=== PATIENT | female | born 2005 | race Caucasian/White ===

== ENCOUNTER 2024-01-20 10:22 | Inpatient (IN) ==
[2024-01-20] MEDS ORDERED: OXYTOCIN 30 UNITS/NSS 30 UNITS/500 ML BAG IV PRN ×2 (10:50→14:57)
[2024-01-20] MEDS ORDERED: LIDOCAINE 1% LOCAL 20 ML VIAL INFIL PRN (10:50)
--- NOTE | 2024-01-20 10:52 | History & Physical Report ---
Date of Service January 20, 2024 Assessment & Plan (1) Normal labor: Plan admit, iv, labs. fhts categ 1. desires epidural. History of Present Illness Chief Complaint: painful contractions. Primary Care Provider: Keerthi Hidalgo DO 18yo at 40+wks wm presents to LD with painful contractions. No rom. Some bleeding, red. +FM. PNC c/b 1. pulmonary valve stenosis--> normal echo this 2. CT pos, treated, flavio and restest neg. PNL rh pos, ri, gbs neg OBH: g1 GYNH: +ct in preg, treated, flavio neg and retest 36wks neg Allergies Allergy/AdvReac Type Severity Reaction Status Date / Time No Known Allergies Allergy Verified 01/15/24 14:30 Home Medications Medication Instructions Recorded Confirmed Type 21-iron fu-folic acid PO 06/04/23 01/15/24 History [ Complete] Patient History Medical History (Updated 01/20/24 @ 10:52 by Kandy Marques MD, FACOG) Chlamydia infection affecting Encounter for anatomic survey Heart murmur Surgical History S/P wisdom tooth extraction Family History Father Hypertension Sister Heart murmur Denies family history of Ovarian cancer Myocardial infarction Breast cancer Colorectal cancer Cancer Social History (Updated 11/25/23 @ 09:13 by Keerthi Hidalgo DO) Smoking Status: Never smoker Tobacco Type: E-cigarettes / Vaping Cigarettes Per Day: Vapes daily- uses 1 vape every 3-4 weeks; Second Hand Exposure: Yes; Do You Dip or Chew Tobacco: No; Hx Alcohol Use: No Hx Substance Use: No Preferred Language: Hebrew Visual Impairment: Partially Limited Hearing Ability: Normal Bilingual Account Manager Required: No Beliefs That Will Affect Care: None marital status: Single marital status details: Pablo Carsonmilton (19) [phone] Current Living Situation: Significant Other Current Living Situation Comment: lives w/ boyfriend current occupational status: employed 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 How many Children do You have: 0 Feels Safe at Home: Yes Childhood Exposure to Second-Hand Smoke: Yes Diet: regular caffeine: Yes during the past year weight has: remained stable Dental Care, Regularly: Yes Physical Activity Frequency: 5-6 Times per Week Physical Activity Frequency Comment: at work Seatbelt Use: always Sunscreen Use: Yes Do you think of yourself as: straight/heterosexual Sexual Activity: has been sexually active within the last 12 months Gender Identity: Female Assistive Devices: Contacts and Glasses Review of Systems as per Subjective / HPI Physical Exam Constitutional: WD/WN, vitals as above Respiratory: normal respiratory effort, lungs clear to auscultation Cardiovascular: Rate/Rhythm: regular rate and regular rhythm Gastrointestinal (Abdomen): soft gravid nt Musculoskeletal: no edema nontender calves Neurologic: grossly normal Psychiatric: A+Ox3, euthymic affect Genitourinary: Manual OB Exam: + cervical dilation 7 cm, + cervical effacement 100% and + station 0 OB Exam Monitor Tracing: + external FHT monitor used, + external uterine monitor used (q2), + category I and + normal FHT variability Results & Data Vital Signs (Past 12 Hours) Vital Signs Pulse BP 01/20/24 10:28 84 138/86 Coding Level of Care Code None Diagnoses Normal labor O80; Z37.9
[2024-01-20] MEDS ORDERED: fentaNYL citrate PF 100 MCG/2 ML VIAL ONE (11:02)
[2024-01-20] MEDS ORDERED: ePHEDrine sulfate 50 MG/ML AMP ONE (11:02)
[2024-01-20] MEDS ORDERED: diphenhydrAMINE 50 MG/ML VIAL IV PRN (11:28)
[2024-01-20] MEDS ORDERED: NALOXONE HCL 1 MG in SODIUM CHLORIDE 0.9% 1,000 ML IV PRN (11:28)
[2024-01-20] MEDS ORDERED: PROMETHAZINE 6.25 MG/50.25 ML BAG IV PRN (11:28)
[2024-01-20] MEDS ORDERED: SODIUM CHLORIDE 0.9% PF INJ 10 ML VIAL EPI PRN (11:28)
[2024-01-20] MEDS ORDERED: SODIUM CHLORIDE 0.9% PF INJ 10 ML VIAL EPI STA (11:28)
[2024-01-20] MEDS ORDERED: LIDOCAINE 2%/EPINEPHRINE 1:200,000 20 ML PF EPI STA (11:28)
[2024-01-20] MEDS ORDERED: ONDANSETRON INJ 2 MG/ML 2 ML VIAL IV PRN (11:28)
[2024-01-20] MEDS ORDERED: ROPIVACAINE 0.5% PF 5 MG/ML 20 ML VIAL EPI PRN (11:28)
[2024-01-20] MEDS ORDERED: NALOXONE HCL 0.4 MG/1 ML VIAL/CARP IV PRN (11:28)
[2024-01-20] MEDS ORDERED: BUPIVACAINE 0.25% PF 30 ML VIAL EPI STA (11:28)
[2024-01-20] MEDS ORDERED: fentaNYL citrate PF 100 MCG/2 ML VIAL EPI STA (11:28)
[2024-01-20] MEDS ORDERED: ePHEDrine sulfate 50 MG/ML AMP IV PRN (11:28)
[2024-01-20] MEDS ORDERED: fentaNYL citrate PF 100 MCG/2 ML VIAL EPI PRN (11:28)
[2024-01-20] MEDS ORDERED: NALBUPHINE HCL INJ 10 MG/ML AMP IV PRN (11:28)
[2024-01-20] MEDS ORDERED: fentANYL 2 MCG/ML BUPIVacaine 0.125%-NSS 100ML BAG EPI PRN (11:28)
[2024-01-20] MEDS ORDERED: LIDOCAINE 2% MPF LOCAL 5 ML VIAL EPI PRN (11:28)
[2024-01-20] MEDS ORDERED: BUPIVACAINE 0.25% PF 30 ML VIAL EPI PRN (11:28)
--- NOTE | 2024-01-20 11:29 | Anesthesiology Consultation ---
Date of Service January 20, 2024 Assessment & Plan Chart Review Chart Review: Patient NOT seen in Pre Admission Testing and Acceptable Risk for Labor Epidural Consults Requested none ASA ASA2 Proposed Anesthesia Anesthesia Type: Labor Epidural Risk / Benefits Reviewed With: PT / POA / Parent / Guardian, Accepts Plan and Informed Consent Obtained History Height/Weight Height: 5 ft 5 in Weight: 80.739 kg Allergies Allergy/AdvReac Type Severity Reaction Status Date / Time No Known Allergies Allergy Verified 01/15/24 14:30 Medications Home Medications Medication Instructions Recorded Confirmed Last Taken 21-iron fu-folic acid PO 06/04/23 01/15/24 Unknown [ Complete] Past Medical History Medical History (Updated 01/20/24 @ 10:52 by Kandy Marques MD, FACOG) Chlamydia infection affecting Encounter for anatomic survey Heart murmur Exercise / Class Metabolic Activity II 4-5 Yardwork/Stairs/Walk up hill Past Family History Family History Father Hypertension Sister Heart murmur Denies family history of Ovarian cancer Myocardial infarction Breast cancer Colorectal cancer Cancer Past Surgical History Surgical History S/P wisdom tooth extraction Past Anesthesia History No Hx of Anesthesia Complications and No Family Hx of Anesthesia Complications History of PONV No Hx of PONV and No Hx of Motion Sickness Social History Smoking Status: Never smoker Smoking cigarettes per day: Vapes daily- uses 1 vape every 3-4 weeks Do You Dip or Chew Tobacco: No Hx Alcohol Use: No Hx Substance Use: No Physical Exam Vital Signs Last Vital Signs Temp 36.6 C 01/20/24 11:17 Pulse 82 01/20/24 11:26 Resp 16 01/20/24 11:17 BP 147/97 H 01/20/24 11:22 Pulse Ox 100 01/20/24 11:26 ENMT Mouth: no dentition abnormality Thyromental Distance: > or= 3.5 Finger Breadths Mallampati Class: II Neck normal visual inspection Respiratory normal respiratory effort Auscultation: lungs clear to auscultation bilaterally Cardiovascular Rate/Rhythm: regular rate and regular rhythm Psychiatric Orientation: alert
[2024-01-20 11:39] LABS: Hematocrit (blood only) 36.1 % (37.0-47.0); Hemoglobin 12.9 g/dl (12.0-16.0); Mean Corpuscular Hemoglobin 31.7 pg (25.0-34.0); Mean Corpuscular Hgb Conc 35.7 g/dL (32.0-36.0); Mean Corpuscular Volume 88.7 fL (80.0-100.0); Mean Platelet Volume 9.9 fL (9.4-12.4); Platelet Count 286 K/uL (130-400); RDW Standard Deviation 39.2 fL (36.4-46.3); Red Blood Count 4.07 M/uL (4.20-5.40); White Blood Count 11.31 K/ul (4.8-10.8)
[2024-01-20] MEDS: fentANYL 2 MCG/ML BUPIVacaine 0.125%-NSS 100ML BAG ONE (11:46)
[2024-01-20] MEDS: LIDOCAINE 2%/EPINEPHRINE 1:200,000 20 ML PF ONE (11:54)
[2024-01-20] MEDS: BUPIVACAINE 0.25% PF 30 ML VIAL ONE (11:54)
[2024-01-20] MEDS: SODIUM CHLORIDE 0.9% PF INJ 10 ML VIAL ONE (11:54)
--- NOTE | 2024-01-20 12:41 | Labor Progress Brief Note ---
Date of Service January 20, 2024 Subjective comfortable with epidural Assessment & Plan (1) Normal labor: Plan good cx change. fhts categ 1. add pit if needed. patient agreeable. Admission and Anticipated Discharge Date Admission Date: January 20, 2024 Physical Exam Constitutional: WD/WN, vitals as above Genitourinary: Manual OB Exam: + cervical dilation 9 cm, + cervical effacement 100%, + station + 1 and + amniotic fluid (arom) clear OB Exam Monitor Tracing: + external FHT monitor used, + external uterine monitor used (q3), + category I and + normal FHT variability Results & Data Vital Signs (Past 12 Hours) Vital Signs Temp Pulse Resp BP Pulse Ox 01/20/24 12:36 85 100 01/20/24 12:34 75 134/79 01/20/24 12:31 81 100 01/20/24 12:26 90 100 01/20/24 12:21 71 99 01/20/24 12:16 99 01/20/24 12:16 83 01/20/24 12:16 82 124/76 01/20/24 12:13 77 125/73 01/20/24 12:11 77 99 01/20/24 12:10 77 120/74 01/20/24 12:07 80 127/75 01/20/24 12:06 82 99 01/20/24 12:04 72 129/76 01/20/24 12:01 99 01/20/24 12:01 80 01/20/24 12:01 75 128/74 01/20/24 11:58 85 127/74 01/20/24 11:56 82 99 01/20/24 11:55 81 134/75 01/20/24 11:52 82 134/62 01/20/24 11:51 79 99 01/20/24 11:49 81 159/81 H 01/20/24 11:46 79 138/70 100 01/20/24 11:43 77 144/87 H 01/20/24 11:41 84 100 01/20/24 11:38 81 144/87 H 01/20/24 11:36 89 99 01/20/24 11:34 84 170/111 H 01/20/24 11:31 81 99 01/20/24 11:26 82 100 01/20/24 11:22 88 147/97 H 01/20/24 11:21 81 100 01/20/24 11:17 97.9 F 81 16 143/94 H 100 01/20/24 11:16 78 100 01/20/24 11:11 82 99 01/20/24 11:10 82 143/94 H 01/20/24 10:28 84 138/86 Coding Level of Care Code None Diagnoses Normal labor O80; Z37.9
[2024-01-20] MEDS: OXYTOCIN 30 UNITS/NSS 30 UNITS/500 ML BAG IV PRN (12:58)
--- NOTE | 2024-01-20 14:45 | Anesthesia Procedure Note ---
Date of Service January 20, 2024 Anesthesia Post Epidural Note Vital Signs Vital Signs: Temp Pulse Resp BP Pulse Ox 36.6 C 88 16 139/74 94 01/20/24 11:17 01/20/24 14:42 01/20/24 11:17 01/20/24 14:04 01/20/24 14:42 Pain Intensity Hip: Pain Intensity: 8 Notes Mental Status: alert / awake / arousable Nausea / Vomiting: adequately controlled Pain: adequately controlled Airway Patency, RR, SpO2: stable & adequate BP & HR: stable & adequate Hydration State: stable & adequate Neuraxial Anesthesia: was administered and sensory block is resolving Anesthetic Complications: no major complications apparent and Pt Satisfied with anesthetic care Epidural: Removed without complications and With tip intact
[2024-01-20] MEDS ORDERED: HYDROCORTISONE ACETATE 25 MG SUPP PR PRN (14:57)
[2024-01-20] MEDS ORDERED: bisacodyL 10 MG SUPP PR PRN (14:57)
[2024-01-20] MEDS ORDERED: ACETAMINOPHEN 325 MG TAB PO PRN (14:57)
--- NOTE | 2024-01-20 15:06 | Delivery Summary ---
Vaginal Delivery Summary Date of Service January 20, 2024 Vaginal Delivery Summary The patient dilated to complete and pushed to deliver a viable female infant Apgars 8 and 9 via over intact perineum. Mouth and nose bulb suctioned at perineum. Shoulders and body delivered with ease. was vigorous and crying at . Cord clamped at 30 seconds of life and infant to maternal abdomen where the cord was then doubly clamped and cut. Placenta delivered spontaneously and intact, three-vessel cord. Hemostasis achieved with dilute pitocin and uterine massage and drainage of the bladder for approximately 300 cc under sterile conditions. Cervix and sulci intact. Bilateral labial lacerations repaired with 3-0 vicryl in routine fashion. QBL 200 cc. Mother and baby stable in recovery. [facility] Vaginal Delivery Charge Delivery Type Details:
[2024-01-20] MEDS: BENZOCAINE 20% SPRY 85 APPLN/85 GM CAN EXT PRN (17:47)
[2024-01-20] MEDS: DOCUSATE SODIUM 100 MG CAP PO SCH (21:36)
--- NOTE | 2024-01-21 05:49 | Obstetrical Progress Note ---
Date of Service January 21, 2024 Assessment & Plan (1) Encounter for care and examination after delivery: Plan Encourage ambulation Encourage breast feeding Pain meds as needed Anticipate DC to home on 01/22/24 Admission and Anticipated Discharge Date Admission Date: January 20, 2024 Supervising Physician Co-Signing Physician Notes Patient seen with resident and agree with the above findings and plan. Patient doing well. Routine care Subjective Pt is 18 yo post- day 1 s/p at 40+w. complicated by chlamydial infection and heart murmur Ambulation:In and out of room Voiding:voiding normally Passing gas: yes BM: no Diet tolerance:regular diet Lochia:bloody, no clots Feeding type: breast Current pain level: 0-3 /10 improved with ibuprofen Resting comfortably this morning in NAD. Denies CASTILLO, CP, SOB, N/V/D, LE pain/swelling. Review of Systems Review of Systems: As per HPI Physical Exam Constitutional: WD/WN, vitals as above Respiratory: normal respiratory effort, lungs clear to auscultation Cardiovascular: RRR, no murmur, no edema Gastrointestinal (Abdomen): normal bowel sounds, soft, nontender, no hepatosplenomegaly Uterine fundus firm and at level of umbilicus Neurologic: PERRL, EOMI, accommodation nl, no face palsy, no dysarthria Moving all 4 extremities on command Psychiatric: A+Ox3, euthymic affect Results & Data Vital Signs (Past 12 Hours) Vital Signs Temp Pulse Resp BP Pulse Ox 01/21/24 03:35 36.6 C 80 17 119/71 98 01/20/24 23:00 36.5 C 74 18 136/77 98 01/20/24 19:30 36.5 C 89 16 124/79 97 Resident Activity Tracking Resident Involvement: Resident Care Provided Care Provided: Adult Hospital Medicine and OB Delivery
[2024-01-21] MEDS: PRENATAL VITAMIN 1 TAB PO SCH (09:11)
[2024-01-21] MEDS: IBUPROFEN 600 MG TAB PO PRN (09:11)
[2024-01-21] MEDS: DIPHTHER/TETAN/PERTUS Vaccine (Tdap, Adol/Adult) 0.5mL IM ONE (20:23)
[2024-01-21] MEDS: bisacodyL 5 MG TABEC PO SCH (20:24)
--- NOTE | 2024-01-22 05:15 | Obstetrical Progress Note ---
Date of Service January 22, 2024 Assessment & Plan (1) Encounter for care and examination after delivery: Plan Encourage ambulation Encourage breast feeding Pain meds as needed Anticipate DC to home today Admission and Anticipated Discharge Date Admission Date: January 20, 2024 Supervising Physician Co-Signing Physician Notes Resident Physician Supervision Note: I interviewed and examined the patient. Discussed with Dr. Hurt and agree with findings and plan as documented in the note. Any exceptions or clarifications are listed here: PP2 s/p , stable for dc Documented By: Whitney Casey MD Subjective Pt is 18 yo post- day 2 s/p at 40+w. complicated by chlamydial infection and heart murmur Ambulation:In and out of room Voiding:voiding normally Passing gas: yes BM: no Diet tolerance:regular diet Lochia:bloody, no clots Feeding type: breast Current pain level: 0-3 /10 improved with ibuprofen Resting comfortably this morning in NAD. Denies CASTILLO, CP, SOB, N/V/D, LE pain/swelling. Review of Systems Review of Systems: As per HPI Physical Exam Constitutional: WD/WN, vitals as above Respiratory: normal respiratory effort, lungs clear to auscultation Cardiovascular: RRR, no murmur, no edema Gastrointestinal (Abdomen): normal bowel sounds, soft, nontender, no hepatosplenomegaly (Uterine fundus is firm and 1 cm below umbilicus) Neurologic: PERRL, EOMI, accommodation nl, no face palsy, no dysarthria Psychiatric: A+Ox3, euthymic affect Results & Data Vital Signs (Past 12 Hours) Vital Signs Temp Pulse Resp BP Pulse Ox O2 Del Method 01/22/24 00:00 36.5 C 82 18 125/78 98 Room Air 01/21/24 19:30 36.5 C 82 18 130/79 99 Room Air Resident Activity Tracking Resident Involvement: Resident Care Provided Care Provided: Adult Hospital Medicine
[2024-01-22 10:44] VITALS: BP 137/76; PULSE 86; RESP 16; TEMP 98.4; O2SAT 99
== END 2024-01-22 12:40 | disposition home or self-care (01) | DRG 807 ==
LOC: OPB 10:22 → 4S1 10:26 → 4E2 17:26